=== PATIENT | male | born 1955 | race Caucasian/White ===

== ENCOUNTER 2018-07-23 09:34 | Day surgery (SDC) | payer MEDICAID, OTHER ==
[~2018-07-23] VITALS: Ht 195.6 cm; Wt 104.7 kg
[2018-07-23] VITALS (7 sets, daily range): BP systolic 95–145; BP diastolic 64–83; PULSE 58–82; RESP 10–19; Ht 195.6 cm; Wt 104.7 kg
[2018-07-23] MEDS ORDERED: LISI-471 PO (10:03)
[2018-07-23] MEDS ORDERED: LEVO125T71 PO (10:03)
[2018-07-23] MEDS ORDERED: APIX2.5T PO (10:03)
[2018-07-23] MEDS ORDERED: HYDR12.58 PO (10:04)
--- NOTE | 2018-07-23 10:15 | PREAC ---
Date/Time of Note Date/Time of Note DATE: 07/23/18 TIME: 10:14 Anesthesia Eval and Record Evaluation Time Pre-Procedure Interview DATE: 07/23/18 TIME: 10:14 Age 63 Sex male NPO: 8 hrs Preoperative diagnosis left cataract Planned procedure left cataract extraction, intraocular lens implant Past Medical History Past Medical History: Includes Cardio: HTN Endo: Hypothyroid Pulm: Other (history of pulmonary embolism) Surgery & Anesthesia Issues No known issue Meds Anticoagulation: Yes (eliquis. last dose one day prior. Surgeon aware and is OK to proceed ) Beta Les within 24 hr: No Reason Beta Les not given: Pt. not on B-Les Reported Medications Hydrochlorothiazide* (Hydrochlorothiazide*) 12.5 Mg Tablet, 6.25 MG PO DAILY, # 30 TAB 07/23/18 Apixaban* (Eliquis*) 2.5 Mg Tablet, 2.5 MG PO BID, TAB 07/23/18 Lisinopril* (Lisinopril*) 20 Mg Tablet, 20 MG PO DAILY, #30 TAB 07/23/18 Levothyroxine Sodium* (Levoxyl*) 125 Mcg Tablet, 125 MCG PO BEFORE BREAKFAST, #30 TAB 07/23/18 Meds reviewed: Yes Allergies Coded Allergies: No Known Allergy (Unverified , 07/23/18) Allergies Reviewed: Yes Labs/Studies Labs Reviewed: Reviewed by anesthesiologist test: N/A Studies: ECG Pre-procedure Exam Airway: Adequate mouth opening, Adequate thyromental dist Mallampati: Mallampati II Teeth: Normal Lung: Normal Heart: Normal ASA Physical Status ASA physical status: 2 Emergency: None Planned Anesthetic General/MAC: Mask Planned Pain Management Parenteral pain med, Local by surgeon Pre-operative Attestations Prior to commencing anesthesia and surgery, the patient was re-evaluated, there was verification of: *The patient's identity *The results of appropriate recent lab work and preoperative vital signs *The above evaluation not changing prior to induction *Anesthetic plan, risk benefits, alternative and complications discussed with patient/family; questions answered; patient/family understands, accepts and wishes to proceed. MORGAN DRUMMOND MD Jul 23, 2018 10:15
[2018-07-23] MEDS ORDERED: EPINEPHrine 1 MG INJ ONE (10:25)
[2018-07-23] MEDS ORDERED: CARBACHOL 0.01% 1.5 ML OPH INJ ONE (10:25)
[2018-07-23] MEDS ORDERED: SODIUM HYALURONATE 14 MG/ML SYG ONE (10:26)
[2018-07-23] MEDS ORDERED: TOBRAMYCIN 0.3% 3.5 GM OPH OINT ONE (10:26)
[2018-07-23] MEDS ORDERED: ACETAZOLAMIDE 250 MG TAB PO ONE (10:30)
[2018-07-23] MEDS ORDERED: DICLOFENAC 0.1% 2.5 ML OPH OPER SCH (10:30)
[2018-07-23] MEDS ORDERED: TROPICAMIDE 1% 15 ML OPH OPER SCH (10:30)
[2018-07-23] MEDS ORDERED: MOXIFLOXACIN 0.5% 3 ML OPH OPER SCH (10:30)
[2018-07-23] MEDS ORDERED: PHENYLephrine 10% 5 ML OPH OPER SCH (10:30)
--- NOTE | 2018-07-23 11:46 | HPN ---
Date/Time of Note Date/Time of Note DATE: 07/23/18 TIME: 11:46 Interval H&P Admission Note Pt. seen H&P reviewed: No system changes PRESLEY LIMA Jul 23, 2018 11:46
[2018-07-23] MEDS ORDERED: FENTAnyl 50 MCG/ML VIAL ONE (11:59)
[2018-07-23] MEDS ORDERED: MIDAZOLAM 1 MG/ML 2 ML INJ ONE (11:59)
[2018-07-23] MEDS ORDERED: OXYCODONE/ACETAMINOPHEN (5/325) TAB PO PRN (12:00)
[2018-07-23] MEDS ORDERED: FENTAnyl 50 MCG/ML VIAL IV PRN (12:00)
[2018-07-23] MEDS ORDERED: PROCHLORPERAZINE 10 MG INJ IV PRN (12:00)
[2018-07-23] MEDS ORDERED: LABETALOL HCL 20MG INJ IV PRN (12:00)
[2018-07-23] MEDS ORDERED: hydrALAzine 20 MG INJ IV PRN (12:00)
[2018-07-23] MEDS ORDERED: ONDANSETRON 4 MG INJ IV PRN (12:00)
[2018-07-23] MEDS ORDERED: MEPERIDINE 25 MG INJ IV PRN (12:00)
[2018-07-23] MEDS ORDERED: DIPHENHYDRAMINE 50 MG INJ IV PRN (12:00)
[2018-07-23] MEDS ORDERED: HYDROmorphONE 1 MG/5 ML IV SYRINGE IV PRN ×3 (12:00)
[2018-07-23] MEDS ORDERED: LIDOCAINE 1.5%/EPI MPF (SDV) 30 ML VIAL INJ ONE (12:01)
[2018-07-23] MEDS ORDERED: TETRACAINE 0.5% 4 ML OPH OPER ONE (12:02)
[2018-07-23] MEDS ORDERED: TOBRAMYCIN 0.3% 3.5 GM OPH OINT LEFT EYE ONE (12:03)
[2018-07-23] MEDS ORDERED: CARBACHOL 0.01% 1.5 ML OPH INJ IO ONE (12:03)
[2018-07-23] MEDS ORDERED: SODIUM HYALURONATE 14 MG/ML SYG IO ONE (12:04)
[2018-07-23] MEDS ORDERED: HYDROmorphONE 2 MG/ML SYG ONE (12:18)
--- NOTE | 2018-07-23 12:53 | OPR ---
Date/Time of Note Date/Time of Note DATE: 07/23/18 TIME: 12:48 Operative Report Free Text/Dictation Procedure Date: 07/23/18 Pre-operative diagnosis: Visually significant cataract, left eye Postoperative diagnosis: Visually significant cataract, left eye Procedure: Phacoemulsification with Intra-ocular lens placement, left eye Surgeon: Presley Lima MD Disposal Operator: none Anesthesia Type: MAC, local anesthesia Anesthesiologist: BASIL Tourniquet Time: NA Estimated blood loss: None Transfusions: none Specimen: None Grafts/Implants: IOL: [id number], power +19.50 Tubes/Drains: None Complications: None Pt Condition Post Procedure: stable Disposition: home Findings: opacified lens Indications for procedure: The patient is 63 year-old male with Visually significant cataract, who presented with blurred vision and difficulty reading and driving. Past medical history is significant for HTN, hypothyroidism and DVT. Past surgical history is significant for cataract surgery right eye. The patient is using eliquis, HCTZ, levothyroxine, lisinopril. The is no known allergy. There is no history of glaucoma or any other hereditary ophthalmic disease in the family. Review of system is negative except for the blurred vision in the affected eye. VA in the operated eye 20/60, IOP 12 mmHg. Pupils are reactive with no RAPD. Slit lamp exam: cornea is clear, deep anterior marla-eduardo, 2+ cortical cataract, 2+ nuclear sclerosis cataract, there is no psudoexfoliation present at the pupillary margin or anterior lens capsule. On funds exam cup/disc ratio is 0.5, macula shows normal foveal reflex, retina is attached. Risk, benefit and alternative to cataract surgery was explained to the patient, who agreed to proceed with the procedure. The informed consent was signed by the patient. Description of procedure: The patient was seen by me along with anesthesia team in the pre op area and the surgical site was marked and confirmed. Anesthetic drops along with dilating drops was instilled in surgical eye in the pre op. The patient was then brought back to the operating room placed in supine position. The eye was prepped with Betadine 5% and draped in sterile manner for the ophthalmic surgery. An eyelid speculum was was placed to keep the eyelid open. Paracentesis wound was made superiorly and inferiorly though clear cornea near the limbus using 1.2mm side-port blade. Preservative free Lidocaine 1% was injected into the anterior chamber through the paracentesis wound. The anterior chamber was inflated with viscoelastic (viscoat). A keratom blade was used to make a bi- planar, shelved, clear corneal incision, starting at temporal limbus and then tunnel-ing through clear cornea to enter the anterior chamber. A circular curvilinear continue capsulorrhexis was initiated by cystotom and continued with utrata forceps. The capsular flap then was removed. Hydrodissection and hydrodelineation was per-formed using BSS until the lens was freely rotatable. The lens nucleus was then removed using the phacoemulsification handpiece. The residual cortex was removed with the bimanual irrigation/aspiration handpieces. The capsular bag and anterior chamber were inflated with viscoelastic, and the IOL was inserted into the capsular bag. Usin g irrigation/Aspiration handpiece on the aspiration mode, Healon was removed from the anterior and posterior chamber. Main wound and paracentesis wound was hydrated by BSS. The speculum was removed. Vigamox drops and Sterile antibiotic/steroid ointment was applied to the eye. A cotton patch and clear shield were placed over the operative eye. The patient was transferred to the recovery room in stable condition. Presley Lima MD [id number] PRESLEY LIMA Jul 23, 2018 12:53
--- NOTE | 2018-07-23 13:06 | PAC ---
Date/Time of Note Date/Time of Note DATE: 07/23/18 TIME: 13:06 Post-Anesthesia Notes Post-Anesthesia Note Last documented vital signs Vital Signs Date Temp Pulse Resp B/P (MAP) Pulse Ox O2 O2 Flow FiO2 Time Delivery Rate 07/23/18 99.2 12:48 07/23/18 82 16 128/78 95 Room Air 11:18 (95) Activity: WNL Respiratory function: WNL Cardiovascular function: WNL Mental status: Baseline Pain reasonably controlled: Yes Hydration appropriate: Yes Nausea/Vomiting absent: Yes Comments BP: 125/78 HR: 70 RR: 15 T: 99.2 SaO2: 98%MORGAN FORBES MD Jul 23, 2018 13:06
== END 2018-07-23 14:31 | disposition home or self-care (01) ==
LOC: SDS 09:34 → EDSTATUS 12:00 → SDS 14:31
PROVIDERS: ATTEND Ophthalmology
DX: H26.9 Unspecified cataract (principal); I10 Essential (primary) hypertension; E03.9 Hypothyroidism, unspecified; Z86.718 Personal history of other venous thrombosis and embolism
CPT/HCPCS: 66984; J0171; J1170; J2250; J2405; J3010; Z7610